=== PATIENT | female | born 1965 | race Hispanic/Latino ===

== ENCOUNTER 2018-01-19 22:44 | Emergency (ER) | payer OTHER ==
[~2018-01-19] VITALS: Ht 160 cm; Wt 99.8 kg
[2018-01-19 23:35] LABS: BASOPHILS % 0.2 % (0.0-1.0); EOSINOPHILS % 0.3 % (0.0-6.0); HEMATOCRIT 34.2 % (34.2-44.1); LYMPHOCYTES # (AUTO) 2.2 (1.0-3.2); LYMPHOCYTES % 20.2 % (18.0-39.1); MEAN CORPUSCULAR HEMOGLOBIN 26.7 pg (28-32); MEAN CORPUSCULAR HGB CONC 32.2 g/dL (31-35); MONOCYTES # (AUTO) 0.9 (0.2-0.8); MONOCYTES % 8.1 % (4.4-11.3); NEUTROPHILS # (AUTO) 7.8 (2.1-6.9); NEUTROPHILS % 70.9 % (38.7-80.0); PLATELET COUNT 452 x10e3/uL (140-360); RED BLOOD COUNT 4.12 x10e6/uL (3.6-5.1); RED CELL DISTRIBUTION WIDTH 15.5 % (11.7-14.4)
[2018-01-19 23:41] LABS: BILIRUBIN,URINE NEGATIVE (NEGATIVE); CLARITY,URINE CLEAR (CLEAR); COLOR,URINE YELLOW (YELLOW); KETONES,URINE NEGATIVE (NEGATIVE); LEUKOCYTE ESTERASE ,URINE NEGATIVE (NEGATIVE); NITRITE,URINE NEGATIVE (NEGATIVE); PROTEIN,URINE DIPSTICK NEGATIVE (NEGATIVE); URINE UROBILINOGEN 0.2 mg/dL (0.2 - 1)
[2018-01-19 23:47] LABS: EPITHELIAL CELLS,URINE FEW /LPF; MUCUS,URINE FEW (RARE); RBC,URINE 0-5 /HPF (0-5); WBC,URINE (MAN) 0-5 /HPF (0-5)
[2018-01-19 23:54] LABS: ALANINE AMINOTRANSFERASE 11 IU/L (0-55); ALBUMIN 3.1 g/dL (3.5-5.0); ALBUMIN/GLOBULIN RATIO 0.6 (0.8-2.0); ALKALINE PHOSPHATASE 153 IU/L (40-150); AMYLASE 44 U/L (25-125); ANION GAP 13.4 mmol/L (8-16); BLOOD UREA NITROGEN 14 mg/dL (7-26); CARBON DIOXIDE 21 mmol/L (22-29); CHLORIDE 107 mmol/L (98-107); CREATINE KINASE 47 IU/L (29-168); GLUCOSE 109 mg/dL (74-118); LIPASE 27 U/L (8-78); POTASSIUM 4.4 mmol/L (3.5-5.1); SODIUM 137 mmol/L (136-145)
--- NOTE | 2018-01-19 23:59 | Diagnostic Imaging Report ---
EXAM: CHEST 2 VIEWS, PA and lateral INDICATION: Indigestion, abdominal pain COMPARISON: None FINDINGS: LINES/TUBES: None LUNGS: No consolidations or edema. PLEURA: No effusions or pneumothorax. HEART AND MEDIASTINUM: Normal size and contour. BONES AND SOFT TISSUES: No acute findings. Surgical clips left upper quadrant of the abdomen. IMPRESSION: No acute thoracic abnormality. Signed by: Dr. Amanda Martin M.D. on 01/19/2018 11:55 PM
[2018-01-20] LABS: BUN/CREATININE RATIO 18 (6-25); CREATININE, SERUM 0.76 mg/dL (0.57-1.11); EST GLOMERULAR FILTRATION RATE > 60 ML/MIN (60-)
--- NOTE | 2018-01-20 01:35 | Diagnostic Imaging Report ---
EXAM: US GALLBLADDER INDICATION: Abdominal pain COMPARISON: None TECHNIQUE: Transverse and longitudinal sonographic images of the right upper abdomen were obtained. FINDINGS: LIVER: 14.8 cm in the right midclavicular line. Normal echogenicity, normal contour, no masses. Main Portal Vein: Normal size with hepatopetal flow. GALLBLADDER: Gallstones without gallbladder wall thickening or pericholecystic fluid. Negative sonographic Rangel's sign. BILE DUCTS: No intra nor extra-hepatic dilation. Common bile duct measures 0.3 cm. PANCREAS: Poorly visualized secondary to bowel gas RIGHT KIDNEY: 10 cm in length Echogenicity: Normal Collecting System: No hydronephrosis Stones: None Cyst/Mass: None FREE FLUID: None in the right upper quadrant of the abdomen IMPRESSION: Cholelithiasis without evidence of acute cholecystitis. Signed by: Dr. Amanda Martin M.D. on 01/20/2018 1:31 AM
[2018-01-20] MEDS ORDERED: MORPHINE SULFATE 2 MG/ML SYR IV STA (01:56)
[2018-01-20] MEDS ORDERED: DICYCLOMINE HCL 20 MG/2 ML VIAL IM ONE (02:00)
[2018-01-20] MEDS ORDERED: ONDANSETRON HCL 4 MG ORAL DISINTEGRATING TAB PO PRN (02:00)
[2018-01-20] MEDS ORDERED: DICYCLOMINE HCL20 MG PO (02:42)
[2018-01-20] MEDS ORDERED: ZOFRAN ODT4 MG SL (02:42)
[2018-01-20] MEDS ORDERED: ULTRAM 50MG50 MG PO (02:42)
[2018-01-20 02:45] VITALS: BP 136/92
[2018-01-23] MEDS ORDERED: AMLODIPINE BESY10 MG PO (10:17)
== END 2018-01-20 02:58 | disposition home or self-care (01) ==
LOC: ER 22:44
DX: R10.11 Right upper quadrant pain (principal); R10.13 Epigastric pain; R19.7 Diarrhea, unspecified; K80.70 Calculus of gallbladder and bile duct without cholecystitis without obstruction; I10 Essential (primary) hypertension; M35.00 Sjogren syndrome, unspecified
CPT/HCPCS: 36415; 71046; 76705; 80053; 81001; 82150; 82550; 82553; 83690; 84484; 85025; 93005; 99284; J0500; J2270

== ENCOUNTER → 2018-01-25 | Day surgery (SDC) | payer OTHER ==
[2018-01-23 10:24] LABS: BASOPHILS % 0.4 % (0.0-1.0); EOSINOPHILS # (AUTO) 0.2 (0.0-0.4); EOSINOPHILS % 2.3 % (0.0-6.0); HEMATOCRIT 33.8 % (34.2-44.1); HEMOGLOBIN 10.9 g/dL (12.0-16.0); LYMPHOCYTES # (AUTO) 2.8 (1.0-3.2); LYMPHOCYTES % 39.2 % (18.0-39.1); MEAN CORPUSCULAR HEMOGLOBIN 26.8 pg (28-32); MEAN CORPUSCULAR HGB CONC 32.2 g/dL (31-35); MONOCYTES # (AUTO) 0.7 (0.2-0.8); MONOCYTES % 9.2 % (4.4-11.3); NEUTROPHILS # (AUTO) 3.4 (2.1-6.9); NEUTROPHILS % 48.5 % (38.7-80.0); PLATELET COUNT 467 x10e3/uL (140-360); RED BLOOD COUNT 4.07 x10e6/uL (3.6-5.1); RED CELL DISTRIBUTION WIDTH 15.2 % (11.7-14.4)
[2018-01-23 11:00] LABS: ALANINE AMINOTRANSFERASE 11 IU/L (0-55); ALBUMIN 2.8 g/dL (3.5-5.0); ALBUMIN/GLOBULIN RATIO 0.6 (0.8-2.0); ALKALINE PHOSPHATASE 168 IU/L (40-150); ANION GAP 11.5 mmol/L (8-16); BLOOD UREA NITROGEN 8 mg/dL (7-26); BUN/CREATININE RATIO 11 (6-25); CARBON DIOXIDE 27 mmol/L (22-29); CHLORIDE 106 mmol/L (98-107); CREATININE, SERUM 0.75 mg/dL (0.57-1.11); EST GLOMERULAR FILTRATION RATE > 60 ML/MIN (60-); GLUCOSE 88 mg/dL (74-118); POTASSIUM 3.5 mmol/L (3.5-5.1); SODIUM 141 mmol/L (136-145)
[2018-01-23 12:40] LABS: EOSINOPHILS % (MANUAL) 4 % (0-7); LYMPHOCYTES % (MANUAL) 35 % (19-48); MONOCYTES % (MANUAL) 8 % (3.4-9.0); NEUTROPHILS % (MANUAL) 50 % (40-74)
[2018-01-23 12:41] LABS: ANISOCYTOSIS SLIGHT; HYPOCHROMASIA SLIGHT; PLATELET ESTIMATE SLIGHTLY INCREASED; PLATELET MORPHOLOGY COMMENT FEW LARGE; POIKILOCYTOSIS SLIGHT
[2018-01-23 12:42] LABS: RBC MORPHOLOGY COMMENT NORMAL
[~2018-01-25] MED LIST: ACETAMINOPHEN 1000 MG/100 ML IV ONE; AMLODIPINE BESY10 MG PO; BUPIVACAINE HCL 0.5% INJ 30 ML VIAL INJ ONE; DEXAMETHASONE SOD PHOS INJ 4 MG/ML VIAL ONE; DICYCLOMINE HCL20 MG PO; FENTANYL CITRATE/PF 100MCG/2 ML INJ ONE; LEVOFLOXACIN 500MG/D5W 100ML 100 ML IV ONE; LIDOCAINE HCL 2% LOCAL INJ 5 ML SDV VIAL INJ ONE; METOCLOPRAMIDE HCL 10 MG/2ML VIAL ONE; MIDAZOLAM HCL 2 MG/2 ML VIAL ONE; ONDANSETRON HCL INJ 2 MG/ML VIAL ONE; PROPOFOL IV EMULSION 10 MG/ML 20 ML VIAL ONE; ROCURONIUM BROMIDE 10 MG/ML 5ML VIAL ONE; SEVOFLURANE INHAL SOLN 250 ML PEN BTL ONE; ULTRAM 50MG50 MG PO; ZOFRAN ODT4 MG SL
--- OUTSIDE RECORDS SUMMARY | 2018-01-25 09:52 | XMS REPORT | Continuity of Care Document ---
Author Author [facility] Organization [facility] Address [address] [place] [address] Phone Unavailable Care Team Providers Care Firer Low Pressure Name Role Phone JB SALAZAR MD PCP Insurance Providers Guarantor Etta Madrid Address [address] [place] [address] Payer [employer] o Policy Number [id number] Subscriber's Name Etta Madrid Relationship 18 Self / Same As Patient Group Number [id number] Group Name [facility] Effective Date 03 Advance Directives Directive Response Recorded Date/Time Does the patient have an advance directive? No 02/11/09 8:24am If yes, is advance directive on file with [facility]? No 02/11/09 8:24am Problems No problem information available. Medications Current Home Medications Medication Dose Units Route Directions Days Qty Instructions Start Date Dicyclomine Hcl 20 Mg Tablet 20 Mg Oral Every 6 Hours as needed for Ab Ondansetron (Zofran Odt) 4 Mg Tab.rapdis 4 Mg Sublingual Every 6 Hours as needed for Nausea Tramadol Hcl (Ultram 50MG*) 50 Mg Tab 50 Mg Oral Every 6 Hours as needed for Pain Social History Smoking Status Start Date Stop Date Never Smoker Hospital Discharge Instructions No hospital discharge instruction information available. Plan of Care Discharge Date 01/20/18 2:58am Disposition HOME, SELF-CARE Condition at Discharge Stable Instructions/Education Provided Diarrhea - Adult Cholelithiasis Heart Healthy Diet Forms Provided Work/School Excuse Prescriptions See Medication Section Referrals JB SALAZAR MD Order Date: Call for an appointment Address: [address], [place] [id number] Note: FOLLOW-UP WITH SURGEON. CALL FOR APPOINTMENT KIA GARZA MD Address: [address] [address]] [address] [place] [address] VINICIO MEDEIROS MD Address: [address] [place] [address] Additional Instructions/Education AVOID FATTY, FRIED/GREASY AND LACTOSE CONTAINING (SUCH MILK, CHEESE AND ICE CREAM) FOODS. Functional Status No functional status information available. Allergies, Adverse Reactions, Alerts Allergen Type Severity Reaction Status Last Updated shrimp Allergy Intermediate Active 01/19/18 PENICILLIN Allergy Intermediate Active 01/19/18 Immunizations No immunization information available. Vital Signs Acute Vital Signs Vital Response Date/Time Temperature (Fahrenheit) 99.1 degrees F (97.6 - 99.5) 01/20/2018 2:45am Pulse Pulse Rate (adult) 73 bpm (60 - 90) 01/20/2018 2:45am Respiratory Rate 17 bpm (12 - 24) 01/20/2018 2:45am Blood Pressure 136/92 mm Hg 01/20/2018 2:45am Height 5 ft 3 in 01/19/2018 11:00pm Weight 220 lb 01/19/2018 11:00pm Body Mass Index 39.0 kg/m^2 01/19/2018 11:00pm Results Laboratory Results Test Name Result Units Flags Reference Collection Date/Time Result Date/ Time Comments White Blood Count 10.93 x10e3/uL H 4.8-10.8 01/19/2018 11:12pm 2017 11:37pm Red Blood Count 4.12 x10e6/uL 3.6-5.1 01/19/2018 11:12pm 01/19/2018 11: 37pm Hemoglobin 11.0 g/dL L 12.0-16.0 01/19/2018 11:12pm 01/19/2018 11:37pm Hematocrit 34.2 % 34.2-44.1 01/19/2018 11:12p 01/19/2018 11:37pm Mean Corpuscular Volume 83.0 fL 81-99 01/19/2018 11:12p 01/19/2018 11: 37pm Mean Corpuscular Hemoglobin 26.7 pg L 28-32 01/19/2018 11:12p 2017 11:37pm Mean Corpuscular Hemoglobin Concent 32.2 g/dL 31-35 01/19/2018 11:12p 01/19/2018 11:37pm Red Cell Distribution Width 15.5 % H 11.7-14.4 01/19/2018 11:12p 2017 11:37pm Platelet Count 452 x10e3/uL H 140-360 01/19/2018 11:12p 01/19/2018 11: 37pm Neutrophils (%) (Auto) 70.9 % 38.7-80.0 01/19/2018 11:12p 01/19/2018 11:37pm Lymphocytes (%) (Auto) 20.2 % 18.0-39.1 01/19/2018 11:12p 01/19/2018 11:37pm Monocytes (%) (Auto) 8.1 % 4.4-11.3 01/19/2018 11:12p 01/19/2018 11: 37pm Eosinophils (%) (Auto) 0.3 % 0.0-6.0 01/19/2018 11:[facility] 01/19/2018 11: 37pm Basophils (%) (Auto) 0.2 % 0.0-1.0 01/19/2018 11:12p 01/19/2018 11: 37pm IM GRANULOCYTES % 0.3 % 0.0-1.0 01/19/2018 11:12p 01/19/2018 11:37pm Neutrophils # (Auto) 7.8 H 2.1-6.9 01/19/2018 11:12p 01/19/2018 11: 37pm Lymphocytes # (Auto) 2.2 1.0-3.2 01/19/2018 11:12p 01/19/2018 11: 37pm Monocytes # (Auto) 0.9 H 0.2-0.8 01/19/2018 11:12pm 01/19/2018 11: 37pm Eosinophils # (Auto) 0.0 0.0-0.4 01/19/2018 11:12pm 01/19/2018 11: 37pm Basophils # (Auto) 0.0 0.0-0.1 01/19/2018 11:12pm 01/19/2018 11:37pm Absolute Immature Granulocyte (auto 0.03 x10e3/uL 0-0.1 01/19/2018 11: 12pm 01/19/2018 11:37pm Urine Color YELLOW YELLOW 01/19/2018 11:12pm 01/19/2018 11:41pm Urine Clarity CLEAR CLEAR 01/19/2018 11:12p 01/19/2018 11:41pm Urine Specific [place] 1.030 H 1.010-1.025 01/19/2018 11:12pm 2017 11:41pm Urine pH 6 5 - 7 01/19/2018 11:12pm 01/19/2018 11:41pm Urine Leukocyte Esterase NEGATIVE NEGATIVE 01/19/2018 11:12pm 2017 11:41pm Urine Nitrite NEGATIVE NEGATIVE 01/19/2018 11:12pm 01/19/2018 11: 41pm Urine Protein NEGATIVE NEGATIVE 01/19/2018 11:12pm 01/19/2018 11: 41pm Urine Glucose (UA) NEGATIVE NEGATIVE 01/19/2018 11:12pm 01/19/2018 11 :41pm Urine Ketones NEGATIVE NEGATIVE 01/19/2018 11:12pm 01/19/2018 11: 41pm Urine Urobilinogen 0.2 mg/dL 0.2 - 1 01/19/2018 11:12pm 01/19/2018 11: 41pm Urine Bilirubin NEGATIVE NEGATIVE 01/19/2018 11:12pm 01/19/2018 11: 41pm Urine Blood TRACE H NEGATIVE 01/19/2018 11:12pm 01/19/2018 11:41pm Urine WBC 0-5 /HPF 0-5 01/19/2018 11:12pm 01/19/2018 11:47pm Urine RBC 0-5 /HPF 0-5 01/19/2018 11:12pm 01/19/2018 11:47pm Urine Bacteria NONE /HPF NONE 01/19/2018 11:12pm 01/19/2018 11:47pm Urine Epithelial Cells FEW /LPF NONE 01/19/2018 11:12p01/19/2018 11: 47pm Urine Mucus FEW H RARE 01/19/2018 11:01/19/2018 11:47pm Sodium Level 137 mmol/L 136-145 01/19/2018 11:01/19/2018 11:58pm Potassium Level 4.4 mmol/L 3.5-5.1 01/19/2018 11:12p01/19/2018 11: 58pm Chloride Level 107 mmol/L 98-107 01/19/2018 11:12p01/19/2018 11:58pm Carbon Dioxide Level 21 mmol/L L 22-29 01/19/2018 11:12p01/19/2018 11: 58pm Anion Gap 13.4 mmol/L 8-16 01/19/2018 11:01/19/2018 11:58pm Blood Urea Nitrogen 14 mg/dL 7-26 01/19/2018 11:12p01/19/2018 11: 58pm Creatinine 0.76 mg/dL 0.57-1.11 01/19/2018 11:12p01/20/2018 12:00am BUN/Creatinine Ratio 18 6-25 01/19/2018 11:01/20/2018 12:00am Estimat Glomerular Filtration Rate > 60 ML/MIN 60- 01/19/2018 11:01/20/2018 12:00am Ranges were taken from the National Kidney Disease Education Program and the National Kid[employer] Foundation literature. Reference ranges: 60 or greater: Normal 16-59 (for 3 consecutive months): Chronic kidney disease 15 or less: Kidney failure Glucose Level 109 mg/dL 74-118 01/19/2018 11:01/19/2018 11:58pm Calcium Level 9.0 mg/dL 8.4-10.2 01/19/2018 11:01/19/2018 11:58pm Total Bilirubin 0.6 mg/dL 0.2-1.2 01/19/2018 11:01/19/2018 11: 58pm Aspartate Amino Transf (AST/SGOT) 18 IU/L 5-34 01/19/2018 11:12p01/19 11:58pm Alanine Aminotransferase (ALT/SGPT) 11 IU/L 0-55 01/19/2018 11:12p01/2018 11:58pm Total Protein 7.9 g/dL 6.5-8.1 01/19/2018 11:12pm 01/19/2018 11:58pm Albumin 3.1 g/dL L 3.5-5.0 01/19/2018 11:12pm 01/19/2018 11:58pm Globulin 4.8 g/dL H 2.3-3.5 01/19/2018 11:12pm 01/19/2018 11:58pm Albumin/Globulin Ratio 0.6 L 0.8-2.0 01/19/2018 11:12pm 01/19/2018 11: 58pm Alkaline Phosphatase 153 IU/L H 40-150 01/19/2018 11:12pm 01/19/2018 11: 58pm Creatine Kinase 47 IU/L 29-168 01/19/2018 11:12pm 01/19/2018 11:58pm Creatine Kinase MB 0.50 ng/mL 0-5.0 01/19/2018 11:12pm 01/20/2018 12: 01am Troponin I < 0.001 ng/mL 0-0.300 01/19/2018 11:12pm 01/20/2018 12:01am Amylase Level 44 U/L 25-125 01/19/2018 11:12pm 01/19/2018 11:58pm Lipase 27 U/L 8-78 01/19/2018 11:12pm 01/19/2018 11:58pm Procedures Procedure Status Date Provider(s) X-ray of chest, two views Active 01/19/18 JANIS TEJEDA MD US gallbladder Active 01/19/18 JANIS TEJEDA MD Encounters Encounter Location Arrival/Admit Date Discharge/Depart Date Attending Provider Departed Emergency Room [facility] 01/19/18 10:44pm 01/20 2:58am JANIS TEJEDA MD
--- OUTSIDE RECORDS SUMMARY | 2018-01-25 09:52 | XMS REPORT ---
Author Author [facility] Address Unknown Phone Unavailable Care Team Providers Care Print Production Coordinator Name Role Phone JANIS TEJEDA Unavailable Unavailable Problems This patient has no known problems. Allergies, Adverse Reactions, Alerts This patient has no known allergies or adverse reactions. Medications This patient has no known medications. Results Test Description Test Time Test Comments Text Results Atomic Results Result Comments CHEST 2 VIEWS [place] [address] Patient Name: ETTA CREWS MR #: [id number] : 1965 Age/Sex: 52/F Req # : [id number] Adm Physician: Ordered by: JANIS TEJEDA MD Report # : [id number] Location: ER Room/Bed: Procedure: [id number] DX/CHEST 2 VIEWS Exam Date: 01/19/18 Exam Time : 5 REPORT STATUS: Signed EXAM: CHEST 2 VIEWS, PA and lateral INDICATION: Indigestion, abdominal pain COMPARISON: None FINDINGS: LINES/TUBES: None LUNGS: No consolidations or edema. PLEURA: No effusions or pneumothorax. HEART AND MEDIASTINUM: Normal size and contour. BONES AND SOFT TISSUES: No acute findings. Surgical clips left upper quadrant of the abdomen. IMPRESSION: No acute thoracic abnormality. Signed by: Dr. Dalton Martin M.D. on 01/19/2018 11:55 PM Dictated By: DALTON MARTIN MD 52 COPY TO: JANIS TEJEDA MD US GALLBLADDER [place] [address] Patient Name: ETTA CREWS MR #: [id number] : 1965 Age/Sex: 52/F Req # : [id number] Adm Physician: Ordered by: JANIS TEJEDA MD Report # : [id number] Location: ER Room/Bed: Procedure: [id number] US/US GALLBLADDER Exam Date: Exam Time: REPORT STATUS: Signed EXAM: US GALLBLADDER INDICATION: Abdominal pain COMPARISON: None TECHNIQUE: Transverse and longitudinal sonographic images of the right upper abdomen were obtained. FINDINGS: LIVER: 14.8 cm in the right midclavicular line. Normal echogenicity, normal contour, no masses. Main Portal Vein: Normal size with hepatopetal flow. GALLBLADDER: Gallstones without gallbladder wall thickening or pericholecystic fluid. Negative sonographic Rangel's sign. BILE DUCTS: No intra nor extra-hepatic dilation. Common bile duct measures 0.3 cm. PANCREAS: Poorly visualized secondary to bowel gas RIGHT KIDNEY: 10 cm in length Echogenicity: Normal Collecting System: No hydronephrosis Stones: None Cyst/Mass: None FREE FLUID: None in the right upper quadrant of the abdomen IMPRESSION: Cholelithiasis without evidence of acute cholecystitis. Signed by: Dr. Dalton Martin M.D. on 01/20/2018 1:31 AM Dictated By: DALTON MARTIN MD 0 Transcribed By: LINDA on 01/20/18130 COPY TO: JANIS TEJEDA MD
--- NOTE | 2018-01-25 15:11 | Operative Report ---
DATE OF PROCEDURE: January 25, 2018 PREOPERATIVE DIAGNOSIS: Chronic cholecystitis and cholelithiasis. POSTOPERATIVE DIAGNOSIS: Chronic cholecystitis and cholelithiasis. PROCEDURES 1. Diagnostic laparoscopy. 2. Laparoscopic cholecystectomy. DIAMOND SIZER AND SORTER: None. ANESTHESIA: General endotracheal. INDICATIONS AND FINDINGS: The patient is a 52-year-old female who developed severe epigastric right upper quadrant abdominal pain about a week ago. Pain is persistent. Workup revealed gallstones. At surgery, the patient was found to have a gallbladder that was edematous and distended containing purulent fluid and multiple small stones. There was adherent omentum and transverse colon over the neck and fundus of the gallbladder. TECHNIQUE: After adequate general endotracheal anesthesia with the patient in the supine position, the abdomen was prepped and draped in a sterile fashion with Andrei solution. The skin in the umbilicus was infiltrated 0.5% percent Marcaine. Incision was made in the umbilicus. Abdominal wall was elevated and Veress needle was introduced. Pneumoperitoneum was then created. A 10-mm trocar and cannula was then passed through the umbilical wound. Laparoscopic camera was introduced. Initial laparoscopy revealed an inflammatory process in the right upper quadrant. A 10-mm trocar and cannula were placed in the epigastrium. Two 5-mm trocars and cannulas were placed in the right upper quadrant. These were placed under direct vision. The fundus of the gallbladder was tense and somewhat fibrotic and edematous. It was decompressed with the needle and contained white purulent fluid with the fundus retracted superiorly. There were adhesions over the neck and fundus of the gallbladder. These involved the omentum and transverse colon. These were lysed staying close to the gallbladder. Neck of the gallbladder was then grasper and retracted laterally. Peritoneum of the neck of the gallbladder was incised. The gallbladder cystic duct junction was dissected free. Cystic artery was also dissected free. Cystic artery was divided between Hemoclips close to the gallbladder. Cystic duct also divided between Hemoclips with 3 clips being left on the common bile duct side. Posterior branch of the cystic artery was also divided between Hemoclips close the gallbladder. The gallbladder was dissected free from the liver using scissors and electrocautery. Once it was entirely free, it was placed into an Endopouch and brought out through the epigastric cannula. Gallbladder bed was inspected for hemostasis, which was seen to be adequate. T was irrigated with saline. All fluid aspirated. Inspected once again for hemostasis, which was seen to be adequate. Instruments and cannulas were then removed. Pneumoperitoneum was evacuated. Wounds were then closed. Fascia in the umbilical and epigastric wound closed with 0 Vicryl. Skin to all wounds were closed with ronan. Sterile dressing was applied to each wound. The patient tolerated the procedure well. Estimated blood loss was 25 mL. There were no complications. All counts were correct. Patient was taken to the recovery room in satisfactory condition. Job#: [id number] MARISOL
== END | disposition home or self-care (01) ==
LOC: OR 09:49
PROVIDERS: ATTEND Surgery
DX: K80.12 Calculus of gallbladder with acute and chronic cholecystitis without obstruction (principal); K82.8 Other specified diseases of gallbladder; I10 Essential (primary) hypertension; M35.00 Sjogren syndrome, unspecified; J45.909 Unspecified asthma, uncomplicated; G47.33 Obstructive sleep apnea (adult) (pediatric); M06.9 Rheumatoid arthritis, unspecified; Z88.0 Allergy status to penicillin; Z01.812 Encounter for preprocedural laboratory examination; Z68.39 Body mass index [BMI] 39.0-39.9, adult; Z98.84 Bariatric surgery status
CPT/HCPCS: 36415; 47562; 80053; 85025; 88304; J1100; J1956; J2001; J2250; J2405; J2765

== ENCOUNTER 2020-06-15 08:00 | Outpatient (RCR) | payer OTHER ==
[~2020-06-15 08:00] MED LIST changes: -ACETAMINOPHEN 1000 MG/100 ML IV ONE; -BUPIVACAINE HCL 0.5% INJ 30 ML VIAL INJ ONE; -DEXAMETHASONE SOD PHOS INJ 4 MG/ML VIAL ONE; -FENTANYL CITRATE/PF 100MCG/2 ML INJ ONE; -LEVOFLOXACIN 500MG/D5W 100ML 100 ML IV ONE; -LIDOCAINE HCL 2% LOCAL INJ 5 ML SDV VIAL INJ ONE; -METOCLOPRAMIDE HCL 10 MG/2ML VIAL ONE; -MIDAZOLAM HCL 2 MG/2 ML VIAL ONE; -ONDANSETRON HCL INJ 2 MG/ML VIAL ONE; -PROPOFOL IV EMULSION 10 MG/ML 20 ML VIAL ONE; -ROCURONIUM BROMIDE 10 MG/ML 5ML VIAL ONE; -SEVOFLURANE INHAL SOLN 250 ML PEN BTL ONE
== END 2020-06-16 ==
LOC: PT 08:00
PROVIDERS: ATTEND Specialist
DX: S93.402D Sprain of unspecified ligament of left ankle, subsequent encounter (principal); M25.672 Stiffness of left ankle, not elsewhere classified; M62.81 Muscle weakness (generalized); R26.2 Difficulty in walking, not elsewhere classified

== ENCOUNTER 2020-06-22 08:57 | Outpatient (RCR) | payer OTHER | END 2020-07-17 | LOC: PT 08:57 | PROVIDERS: ATTEND Specialist | DX: S93.402A Sprain of unspecified ligament of left ankle, initial encounter (principal) | CPT/HCPCS: 97139 ==

== ENCOUNTER 2022-10-27 12:14 | Emergency (ER) | payer OTHER ==
[~2022-10-27] VITALS: Ht 160 cm; Wt 99.8 kg
[2022-10-27] MEDS ORDERED: DEXAMETHASONE4 MG PO (13:49)
[2022-10-27] MEDS ORDERED: PROAIR DIGIHAL90 MCG PO (13:49)
[2022-10-27] MEDS ORDERED: BROMFED DM COU118 ML PO (13:49)
== END 2022-10-27 14:06 | disposition home or self-care (01) ==
LOC: ER 12:24
DX: R05.9 Cough, unspecified (principal); U07.1 COVID-19; I10 Essential (primary) hypertension; M35.00 Sjogren syndrome, unspecified; Z98.84 Bariatric surgery status
CPT/HCPCS: 71046; 99283